=== PATIENT | female | born 1990 | race Caucasian/White ===

== ENCOUNTER 2017-04-07 19:27 | Emergency (ER) | payer SELFPAY ==
[~2017-04-07] VITALS: Ht 172.7 cm; Wt 55.3 kg
[2017-04-07 19:35] VITALS: BP 112/68
[2017-04-07] MEDS ORDERED: TDAP [DIPH/PERTUSSIS/TET] 0.5 ML VIAL IM ONE ×2 (20:30→20:38)
== END 2017-04-07 21:10 | disposition home or self-care (01) ==
LOC: ER 19:30
DX: S90.861A Insect bite (nonvenomous), right foot, initial encounter (principal)
CPT/HCPCS: 73630; 90471; 90715; 99284; A4606; Z7610